=== PATIENT | female | born 1995 | race Two or more races ===

== ENCOUNTER 2018-07-24 16:53 | Inpatient (IN) | payer OTHER ==
[2018-07-24] MEDS ORDERED: Sodium Chloride 0.9% 10 ML Syringe FLUSH PRN (16:59)
[2018-07-24] MEDS ORDERED: Water For Irrigation,Sterile 1,000 ML Container IRR PRN (16:59)
[2018-07-24] MEDS ORDERED: Misoprostol 25 MCG (1/4 of 100 MCG) Tab VAG PRN (16:59)
[2018-07-24] MEDS ORDERED: Lidocaine 1% 50 ML MDV INJECT PRN (16:59)
[2018-07-24] MEDS ORDERED: Tranexamic Acid 1,000 MG in Sodium Chloride 0.9% 100 ML IV PRN (16:59)
[2018-07-24] MEDS ORDERED: Methylergonovine 0.2 MG/1 ML Amp IM PRN (16:59)
[2018-07-24] MEDS ORDERED: Nalbuphine 10 MG/1 ML Vial IVPUSH PRN (16:59)
[2018-07-24] MEDS ORDERED: Sodium Chloride 0.9% 2.5 ML Syringe FLUSH PRN (16:59)
[2018-07-24] MEDS ORDERED: Carboprost Tromethamine 250 MCG/1 ML Amp IM PRN (16:59)
[2018-07-24] MEDS ORDERED: Terbutaline 1 MG/ML SDV SUBCUT PRN (16:59)
[2018-07-24] MEDS ORDERED: Misoprostol 200 MCG Tab PO PRN (16:59)
[2018-07-24] MEDS ORDERED: Sodium Chloride 0.9% 10 ML SDV IV PRN (16:59)
[2018-07-24] MEDS ORDERED: Oxytocin/0.9 % Sodium Chloride 30 UNIT/500 ML BAG IV SCH ×2 (17:00→17:30)
[2018-07-24] MEDS: Misoprostol 25 MCG (1/4 of 100 MCG) Tab VAG PRN (22:40)
[2018-07-25] MEDS: Lactated Ringers 1,000 ML IV SCH ×4 (01:48→20:50)
[2018-07-25] MEDS: Misoprostol 25 MCG (1/4 of 100 MCG) Tab VAG PRN ×2 (02:46→07:00)
[2018-07-25] MEDS: Butorphanol 1 MG/ML SDV IVPUSH PRN ×2 (02:56→09:37)
[2018-07-25] MEDS ORDERED: fentaNYL 100 MCG/2 ML SDV ONE ×2 (14:40→21:15)
--- NOTE | 2018-07-25 15:25 | PCM.PREANE ---
Preanesthetic Assessment - Procedure Proposed Procedure: labor epidural - Anesthesia/Transfusion/Family Hx Anesthesia History: No Prior Anesthesia Family History of Anesthesia Reaction: No Transfusion History: No Prior Transfusion(s) - Review of Systems General: No Symptoms Pulmonary: No Symptoms Cardiovascular: No Symptoms Gastrointestinal: No Symptoms Neurological: No Symptoms Other: Reports: None - Physical Assessment Height: 5 ft 3 in Weight: 96.162 kg ASA Class: 2 ROM/Head Extension: Full Lungs: Clear to Auscultation, Normal Respiratory Effort Cardiovascular: Regular Rate, Regular Rhythm - Lab Values: Laboratory Last Values WBC 10.91 K/uL (4.0-11.0) 07/24/18 17:22 RBC 4.49 M/uL (4.30-5.90) 07/24/18 17:22 Hgb 13.3 g/dL (12.0-16.0) 07/24/18 17:22 Hct 39.9 % (36.0-46.0) 07/24/18 17:22 MCV 88.9 fL (80.0-98.0) 07/24/18 17:22 MCH 29.6 pg (27.0-32.0) 07/24/18 17:22 MCHC 33.3 g/dL (31.0-37.0) 07/24/18 17:22 RDW Std Deviation 46.6 fl (28.0-62.0) 07/24/18 17:22 RDW Coeff of Radha 14 % (11.0-15.0) 07/24/18 17:22 Plt Count 254 K/uL (150-400) 07/24/18 17:22 MPV 10.30 fL (7.40-12.00) 07/24/18 17:22 Nucleated RBC % 0.0 /100WBC 07/24/18 17:22 Nucleated RBCs # 0 K/uL 07/24/18 17:22 Blood Type A POSITIVE 07/24/18 17:22 Antibody Screen NEGATIVE 07/24/18 17:22 - Allergies Allergies/Adverse Reactions: Allergies Allergy/AdvReac Type Severity Reaction Status Date / Time No Known Allergies Allergy Verified 07/24/18 16:58 - Blood Blood Available: No Product(s) Available: None - Anesthesia Plan Pre-Op Medication Ordered: None - Acknowledgements Anesthesia Type Planned: Epidural Pt an Appropriate Candidate for the Planned Anesthesia: Yes Alternatives and Risks of Anesthesia Discussed w Pt/Guardian: Yes Pt/Guardian Understands and Agrees with Anesthesia Plan: Yes PreAnesthesia Questionnaire - Past Health History Medical/Surgical History: Denies 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: - SUBSTANCE USE Smoking Status *Q: Never Smoker Tobacco Use Within Last Twelve Months: No Second Hand Smoke Exposure: No Recreational Drug Use History: No - CURRENT (IN HOUSE) MEDS Current Meds: Current Medications Butorphanol Tartrate (Stadol) 1 mg IVPUSH Q1H PRN PRN Reason: Pain Last Admin: 07/25/18 09:37 Dose: 1 mg Carboprost Tromethamine (Hemabate Ds) 250 mcg IM ASDIRECTED PRN PRN Reason: Post Hemorrhage Lactated Ringer's (Ringers, Lactated) 1,000 mls @ 150 mls/hr IV ASDIRECTED WHITLEY Last Admin: 07/25/18 15:04 Dose: 150 mls/hr Oxytocin/Sodium Chloride (Oxytocin 30 Unit/500 Ml-Ns) 30 unit in 500 mls @ 999 mls/hr IV TITRATE WHITLEY Oxytocin/Sodium Chloride (Oxytocin 30 Unit/500 Ml-Ns) 30 unit in 500 mls @ 2 mls/hr IV TITRATE WHITLEY; Protocol Last Admin: 07/25/18 13:30 Dose: 2 munits/min, 2 mls/hr Tranexamic Acid 1,000 mg/ (Sodium Chloride) 110 mls @ 660 mls/hr IV ONETIME PRN PRN Reason: Bleeding Lidocaine HCl (Xylocaine 1%) 50 ml INJECT ONETIME PRN PRN Reason: Laceration repair Methylergonovine Maleate (Methergine) 0.2 mg IM ASDIRECTED PRN PRN Reason: Post Hemorrhage Misoprostol (Cytotec) 200 mcg PO ONETIME PRN PRN Reason: Post Hemorrhage Misoprostol (Cytotec) 25 mcg VAG ONETIME PRN PRN Reason: Cervical Ripening Last Admin: 07/24/18 17:56 Dose: 25 mcg Misoprostol (Cytotec) 25 mcg VAG Q4H PRN PRN Reason: Cervical Ripening Last Admin: 07/25/18 07:00 Dose: 25 mcg Nalbuphine HCl (Nubain) 10 mg IVPUSH Q1H PRN PRN Reason: Pain (severe 7-10) Sodium Chloride (Saline Flush) 10 ml FLUSH ASDIRECTED PRN PRN Reason: Keep Vein Open Sodium Chloride (Saline Flush) 2.5 ml FLUSH ASDIRECTED PRN PRN Reason: Keep Vein Open Sodium Chloride (Normal Saline) 10 ml IV ASDIRECTED PRN PRN Reason: IV Use Sterile Water (Sterile Water For Irrigation) 1,000 ml IRR ASDIRECTED PRN PRN Reason: delivery Terbutaline Sulfate (Brethine) 0.25 mg SUBCUT ASDIRECTED PRN PRN Reason: Tacysystole Discontinued Medications Fentanyl (Sublimaze) Confirm Administered Dose 100 mcg .ROUTE .STK-MED ONE Stop: 07/25/18 14:41 Fentanyl/Bupivacaine HCl (Anxmuozl-Gpvox-Sn 2 Mcg/Ml-0.125%) Confirm Administered Dose 100 mls @ as directed .ROUTE .STK-MED ONE Stop: 07/25/18 14:41
[2018-07-25] MEDS ORDERED: Acetaminophen 500 MG Tab PO ONE (19:06)
[2018-07-25] MEDS ORDERED: Bupivacaine 0.5% 10 ML SDV ONE (20:37)
--- NOTE | 2018-07-26 00:54 | PCM.DEL ---
L & D Note - General Info Date of Service: 07/26/18 Mother's Due Date: 07/30/18 - Delivery Note Labor: Induced by ARM, Induced by Oxytocin Cervical Ripening Method: Balloon Device, Misoprostil Delivery Outcome: Livebirth Delivery Method: Spontaneous Vaginal Delivery-Single Delivery Mode: Vacuum Extraction Presentation: Right Occiput Anterior (DERREK) Nuchal Cord: Present Prep: Povidone-Iodine (Betadine Anesthesia Type: Epidural Amniotic Fluid Description: Clear Episiotomy Type: None Laceration: 2nd Degree Suture type: Vicryl Suture size: 3-0 Placenta: Intact, Spontaneous Cord: 3 Vessels Estimated Blood Loss: 400 Resuscitation Needed: Yes [place]: Suctioned, Bulb Syringe, Stimulated, [place] Used, Warmer Used Provider: Clementine Monroy Score 1 min: 7 Score 5 min: 8 Delivery Comments (Free Text/Narrative):: Nicole is a who was induced at 39.1 wga for persistent glucosuria. She delivered on 07/26/18 at 39.3 wga at 00:03 to a liveborn male . Infant was assisted with a low vacuum. He was resuscitated after delivery. Mom remained stable throughout. Vacuum Extractor Progress Note - Alternative Labor Strategies Considered Alternative Labor Strategies Considered:: Reports: Yes Strategies Considered:: Reports: Contraction Intensity Adequate, Position Changes Used to Facilitate Rotation & Descent, Empty Bladder Indications Considered:: Reports: Yes Indications:: Reports: Suspicion of Immediate or Potential Compromise - Patient Prepared Patient Prepared:: Reports: Yes Informed Consent:: Reports: Verbal Risks: Reports: Yes Risks Include:: Reports: Laceration, Shoulder Dystocia, Maternal Injury, Other ( injury) Anesthesia/Analgesia Adequate:: Reports: Yes - Probability of Success High Probability of Success:: Reports: Yes Weight Estimated:: Reports: AGA Patient Diabetic:: Reports: No Pelvis Adequate:: Reports: Yes Position:: OA Asynclitic:: Reports: Yes Station:: +2 - Application Time Maximum Application Time & Number of Pop-Offs Predetermined:: Reports: Yes Maximum Pressure Maintained in Green Zone (cm Hg):: 50 Number of Times Cup Disengaged:: 1 Type of Vacuum Used:: Reports: Cup: Soft Vacuum Extraction: Successful Comments:: one "pop-off"; pressure released on vacuum between contractions - Exit Strategy Exit strategy available:: Reports: Yes and resuscitation teams readily available:: Reports: Yes - General Info Date of Service: 07/26/18 - Patient Data Vitals - Most Recent: Last Vital Signs Temp 100.8 F H 07/25/18 19:24 Pulse Resp BP Pulse Ox Weight - Most Recent: 212 lb Med Orders - Current: Current Medications Butorphanol Tartrate (Stadol) 1 mg IVPUSH Q1H PRN PRN Reason: Pain Last Admin: 07/25/18 09:37 Dose: 1 mg Carboprost Tromethamine (Hemabate Ds) 250 mcg IM ASDIRECTED PRN PRN Reason: Post Hemorrhage Lactated Ringer's (Ringers, Lactated) 1,000 mls @ 150 mls/hr IV ASDIRECTED WHITLEY Last Admin: 07/25/18 20:50 Dose: 150 mls/hr Oxytocin/Sodium Chloride (Oxytocin 30 Unit/500 Ml-Ns) 30 unit in 500 mls @ 999 mls/hr IV TITRATE WHITLEY Oxytocin/Sodium Chloride (Oxytocin 30 Unit/500 Ml-Ns) 30 unit in 500 mls @ 2 mls/hr IV TITRATE WHITLEY; Protocol Last Titration: 07/25/18 16:06 Dose: 6 munits/min, 6 mls/hr Tranexamic Acid 1,000 mg/ (Sodium Chloride) 110 mls @ 660 mls/hr IV ONETIME PRN PRN Reason: Bleeding Lidocaine HCl (Xylocaine 1%) 50 ml INJECT ONETIME PRN PRN Reason: Laceration repair Methylergonovine Maleate (Methergine) 0.2 mg IM ASDIRECTED PRN PRN Reason: Post Hemorrhage Misoprostol (Cytotec) 200 mcg PO ONETIME PRN PRN Reason: Post Hemorrhage Misoprostol (Cytotec) 25 mcg VAG ONETIME PRN PRN Reason: Cervical Ripening Last Admin: 07/24/18 17:56 Dose: 25 mcg Misoprostol (Cytotec) 25 mcg VAG Q4H PRN PRN Reason: Cervical Ripening Last Admin: 07/25/18 07:00 Dose: 25 mcg Nalbuphine HCl (Nubain) 10 mg IVPUSH Q1H PRN PRN Reason: Pain (severe 7-10) Sodium Chloride (Saline Flush) 10 ml FLUSH ASDIRECTED PRN PRN Reason: Keep Vein Open Sodium Chloride (Saline Flush) 2.5 ml FLUSH ASDIRECTED PRN PRN Reason: Keep Vein Open Sodium Chloride (Normal Saline) 10 ml IV ASDIRECTED PRN PRN Reason: IV Use Sterile Water (Sterile Water For Irrigation) 1,000 ml IRR ASDIRECTED PRN PRN Reason: delivery Terbutaline Sulfate (Brethine) 0.25 mg SUBCUT ASDIRECTED PRN PRN Reason: Tacysystole Discontinued Medications Acetaminophen (Tylenol Extra Strength) 1,000 mg PO ONETIME ONE Stop: 07/25/18 19:07 Last Admin: 07/25/18 19:24 Dose: 1,000 mg Bupivacaine HCl (Sensorcaine-Mpf 0.5%) Confirm Administered Dose 10 ml .ROUTE .STK-MED ONE Stop: 07/25/18 20:38 Fentanyl (Sublimaze) Confirm Administered Dose 100 mcg .ROUTE .STK-MED ONE Stop: 07/25/18 14:41 Fentanyl (Sublimaze) Confirm Administered Dose 100 mcg .ROUTE .STK-MED ONE Stop: 07/25/18 21:16 Fentanyl/Bupivacaine HCl (Fbsqbljf-Mkusg-Qz 2 Mcg/Ml-0.125%) Confirm Administered Dose 100 mls @ as directed .ROUTE .STK-MED ONE Stop: 07/25/18 14:41 Fentanyl/Bupivacaine HCl (Wuzuqacj-Gpfnb-Ft 2 Mcg/Ml-0.125%) Confirm Administered Dose 100 mls @ as directed .ROUTE .STK-MED ONE Stop: 07/25/18 21:21 - Problem List & Annotations (1) Status post vacuum-assisted vaginal delivery SNOMED Code(s): 172731125, [id number] Code(s): Z87.59 - PERSONAL HISTORY OF COMP OF PREG, CHLDBRTH AND THE PUERP Status: Acute Current Visit: Yes - Problem List Review Problem List Initiated/Reviewed/Updated: Yes - Assessment Assessment:: Nicole is now a for a with vacuum assistance of a liveborn male infant at 00:03. required resuscitation and was taken to nursery. Mom remained stable throughout and is recovering. - Plan Plan:: see dictation by Dr. Monroy
[2018-07-26] MEDS ORDERED: Ibuprofen 400 MG Tab PO PRN (01:07)
[2018-07-26] MEDS ORDERED: Ondansetron 4 MG/2 ML SDV IVPUSH PRN (01:07)
[2018-07-26] MEDS ORDERED: Witch Hazel Medicated Pads 40/Jar TOP PRN (01:07)
[2018-07-26] MEDS ORDERED: Carboprost Tromethamine 250 MCG/1 ML Amp IM PRN (01:07)
[2018-07-26] MEDS ORDERED: Docusate Sodium 100 MG Cap PO PRN (01:07)
[2018-07-26] MEDS ORDERED: Benzocaine/Menthol 20%-0.5% Spray 78 GM Cannister TOP PRN (01:07)
[2018-07-26] MEDS ORDERED: Methylergonovine 0.2 MG/1 ML Amp IM PRN (01:07)
[2018-07-26] MEDS ORDERED: oxyCODONE 5 MG Tab PO PRN (01:07)
[2018-07-26] MEDS ORDERED: Lanolin 100% Cream 7 GM Tube TOP PRN (01:07)
[2018-07-26] MEDS ORDERED: Bisacodyl 10 MG Supp RECTAL PRN (01:07)
[2018-07-26] MEDS ORDERED: Acetaminophen 500 MG Tab PO PRN ×2 (01:07)
[2018-07-26] MEDS: Ibuprofen 800 MG Tab PO PRN ×2 (01:24→13:45)
--- NOTE | 2018-07-26 03:39 | OR ---
SURGEON: Clementine Monroy M.D. DATE OF PROCEDURE: 07/26/2018 PREOPERATIVE DIAGNOSES: 1. 39 weeks' intrauterine . 2. Elective induction of labor. 3. tachycardia, abnormal heart tones. POSTOPERATIVE DIAGNOSES: 1. 39 weeks' intrauterine . 2. Elective induction of labor. 3. tachycardia, abnormal heart tones. PROCEDURE: Vacuum-assisted vaginal delivery with second-degree midline laceration repair. CUPOLA TENDER: James Miller MS4. ANESTHESIA: Epidural. ESTIMATED BLOOD LOSS: 400 mL. COMPLICATIONS: None. FINDINGS: Viable male, scores 7 at 1 minute and 8 at 5 minutes, weight 6 pounds 14 ounces. Spontaneous delivery, intact placenta, 3-vessel cord, clear amniotic fluid. DISPOSITION: The patient in LDRP, infant in [facility]. PROCEDURE DETAILS: Nicole Valdivia is a 22-year-old, G1, P0, at 39 weeks' gestational age, who presented for elective induction of labor. Initially, she was initiated on cervical ripening with Cytotec, and after receiving 4 doses of this, she was still 1 cm, 60% effaced, -3 station. Therefore, underwent balloon ripening as well. She responded nicely to this and within approximately 5-1/2 hours, the balloon extruded. She was found to be 4 to 5 cm, 80% effaced, and -2 station. Therefore, Pitocin was initiated. heart tones at that time remained in the 140s with variability. The patient continued to progress through the early afternoon hours, became more comfortable with epidural. Shortly after 5:00 p.m., she was found to be approximately 6 to 7 cm dilated, 80% effaced, -1 station. Amniotomy was performed, clear fluid was returned. heart tones remained in the 140s to 150s with variability. The patient continued to progress. Pitocin was at 6 milliunits per minute. Shortly before 10:00 p.m., she was found to be complete, 100% effaced, +1 station; began pushing efforts, was able to push to a +2 station, but after that made minimal further descent. After an hour of pushing, I evaluated the patient. She was found to be more transverse presentation, therefore rotated to OA position. Continued with pushing efforts and was able to push to a +3 station for the next hour. heart tone did transition at this time to the 170. She did have a low-grade fever of 100.6, received Tylenol 1 g and IV fluid bolus. The heart tones remained in the 170s and then transitioned to the 180s. At this point, we were 2 hours into pushing. Therefore, I discussed with the patient proceeding with an operative vaginal delivery versus delivery given the persistent tachycardia. She would like to proceed with an operative vaginal delivery and prefers vacuum assisted. Risks of this have been discussed with she and her including increased risk for maternal vaginal trauma, scalp bruising and cephalhematoma and even potentially intracranial bleeding. They voiced their understanding. They would like to proceed in this direction. The [place] for the patient was approximately 3000 g. Midline sagittal suture palpated. Fetus was felt to be OA position. The patient was then placed in modified dorsal lithotomy position, prepped and draped in the usual aseptic manner. I was able to gently place the vacuum along the scalp. The delivery team had been notified. With next contraction, I was able to insufflate the vacuum to the green zone and assisted with pushing efforts. This was released between contractions. With the next contraction, I was able to insufflate to the green zone. However, the pressure did not maintain with this vacuum device. Despite efforts to continue to maintain in the green zone, it would just slowly lose pressure. Therefore, actually removed this vacuum after releasing it and replaced it with another. At this juncture, there was no further difficulty with maintaining the appropriate pressure. With the next approximately 3 to 4 contractions, the patient was able to push. There was a single pop-off that occurred. The patient was able to push to a +5 for delivery. The vacuum was removed. The infant was delivered in DERREK position. The head was delivered followed by anterior shoulder, posterior shoulder, and remainder of the body without difficulty. Loose nuchal cord x1 was reduced manually. 's oropharynx and nares were bulb suctioned. Infant was stimulated and was handed off to his mother, attending nursing staff at her side. Dr. Posada was also present as home security professional. The cord was clamped x2 and cut after the completed pulsating. The cord arterial, cord venous, cord blood sampling was obtained. Light pressure was applied while the placenta was delivered spontaneously intact. Vigorous fundal uterine massage was then applied while 30 units of Pitocin was delivered in 500 mL of IV fluid. Upon inspection of cervix, vaginal sidewalls, and perineum, there was found to be a second-degree midline laceration and repaired using 3-0 Vicryl in the usual fashion. Uterus remained firm. Hemostasis remained evident. Instrument and sponge counts were correct. The patient remained in LDRP, infant in [facility]. MAYCO / DAYANA /[id number]
--- NOTE | 2018-07-26 13:59 | PCM48HPAN ---
Post Anesthesia Note - EVALUATION WITHIN 48HRS OF ANESTHETIC Vital Signs in Normal Range: Yes Patient Participated in Evaluation: Yes Respiratory Function Stable: Yes Airway Patent: Yes Cardiovascular Function Stable: Yes Hydration Status Stable: Yes Pain Control Satisfactory: Yes Nausea and Vomiting Control Satisfactory: Yes Mental Status Recovered: Yes - COMMENTS/OBSERVATIONS Free Text/Narrative:: no complaints
[2018-07-27] MEDS: Ibuprofen 800 MG Tab PO PRN ×3 (00:09→17:42)
--- NOTE | 2018-07-27 08:00 | PCM.PNPP ---
<Clementine Miller - Last Filed: 07/27/18 07:55> - General Info Date of Service: 07/27/18 Admission Dx/Problem (Free Text): Nicole is a who is PP day 1 for with low vacuum-assisted second stage of labor. She states her pain is improving and she denies new symptoms. She is urinating, passing gas, ambulating, and eating without issue. She states she feels well enough to be discharged to home today. Functional Status: Reports: Pain Controlled, Tolerating Diet, Ambulating, Urinating - Review of Systems General: Reports: No Symptoms Pulmonary: Reports: No Symptoms Cardiovascular: Reports: No Symptoms Gastrointestinal: Reports: No Symptoms Genitourinary: Reports: No Symptoms Musculoskeletal: Reports: No Symptoms Skin: Reports: No Symptoms Neurological: Reports: No Symptoms Psychiatric: Reports: No Symptoms - General Info Date of Service: 07/27/18 - Patient Data Vital Signs - Most Recent: Last Vital Signs Temp 97.6 F 07/27/18 04:00 Pulse 88 07/27/18 04:00 Resp 18 07/27/18 04:00 BP 106/62 07/27/18 04:00 Pulse Ox 96 07/27/18 04:00 Weight - Most Recent: 96.162 kg Lab Results - Last 24 Hours: Laboratory Results - last 24 hr 07/26/18 Range/Units 09:11 Hgb 12.5 (12.0-16.0) g/dL Hct 37.4 (36.0-46.0) % Med Orders - Current: Current Medications Acetaminophen (Tylenol Extra Strength) 500 mg PO Q4H PRN PRN Reason: Pain Last Admin: 07/26/18 01:22 Dose: 500 mg Acetaminophen (Tylenol Extra Strength) 1,000 mg PO Q4H PRN PRN Reason: Pain Last Admin: 07/26/18 13:46 Dose: 1,000 mg Benzocaine/Menthol (Dermoplast Pain Relief 20%-0.5% [place]) 78 gm TOP ASDIRECTED PRN PRN Reason: Perineal Comfort Measure Last Admin: 07/26/18 01:25 Dose: 1 canister Bisacodyl (Dulcolax) 10 mg RECTAL ONETIME PRN PRN Reason: Constipation Carboprost Tromethamine (Hemabate Ds) 250 mcg IM ASDIRECTED PRN PRN Reason: Excessive vaginal bleeding Docusate Sodium (Colace) 100 mg PO BID PRN PRN Reason: Constipation Emollient Ointment (Lansinoh Hpa) 0 gm TOP ASDIRECTED PRN PRN Reason: Sore Nipples Last Admin: 07/26/18 01:25 Dose: 1 tube Ibuprofen (Motrin) 400 mg PO Q4H PRN PRN Reason: Pain Ibuprofen (Motrin) 800 mg PO Q6H PRN PRN Reason: Pain Last Admin: 07/27/18 00:09 Dose: 800 mg Methylergonovine Maleate (Methergine) 0.2 mg IM ONETIME PRN PRN Reason: Excessive Vaginal Bleeding Ondansetron HCl (Zofran) 4 mg IVPUSH Q6H PRN PRN Reason: Nausea/Vomiting Oxycodone HCl (Oxycodone) 5 mg PO Q2H PRN PRN Reason: Pain Witch Desiree (Tucks) 1 pad TOP ASDIRECTED PRN PRN Reason: comfort care Discontinued Medications Acetaminophen (Tylenol Extra Strength) 1,000 mg PO ONETIME ONE Stop: 07/25/18 19:07 Last Admin: 07/25/18 19:24 Dose: 1,000 mg Bupivacaine HCl (Sensorcaine-Mpf 0.5%) Confirm Administered Dose 10 ml .ROUTE .STK-MED ONE Stop: 07/25/18 20:38 Butorphanol Tartrate (Stadol) 1 mg IVPUSH Q1H PRN PRN Reason: Pain Last Admin: 07/25/18 09:37 Dose: 1 mg Carboprost Tromethamine (Hemabate Ds) 250 mcg IM ASDIRECTED PRN PRN Reason: Post Hemorrhage Fentanyl (Sublimaze) Confirm Administered Dose 100 mcg .ROUTE .STK-MED ONE Stop: 07/25/18 14:41 Fentanyl (Sublimaze) Confirm Administered Dose 100 mcg .ROUTE .STK-MED ONE Stop: 07/25/18 21:16 Lactated Ringer's (Ringers, Lactated) 1,000 mls @ 150 mls/hr IV ASDIRECTED WHITLEY Last Admin: 07/25/18 20:50 Dose: 150 mls/hr Oxytocin/Sodium Chloride (Oxytocin 30 Unit/500 Ml-Ns) 30 unit in 500 mls @ 999 mls/hr IV TITRATE WHITLEY Oxytocin/Sodium Chloride (Oxytocin 30 Unit/500 Ml-Ns) 30 unit in 500 mls @ 2 mls/hr IV TITRATE WHITLEY; Protocol Last Titration: 07/25/18 16:06 Dose: 6 munits/min, 6 mls/hr Tranexamic Acid 1,000 mg/ (Sodium Chloride) 110 mls @ 660 mls/hr IV ONETIME PRN PRN Reason: Bleeding Fentanyl/Bupivacaine HCl (Vebvacuf-Rstjz-Wr 2 Mcg/Ml-0.125%) Confirm Administered Dose 100 mls @ as directed .ROUTE .STK-MED ONE Stop: 07/25/18 14:41 Fentanyl/Bupivacaine HCl (Elophzfp-Njkcd-Gr 2 Mcg/Ml-0.125%) Confirm Administered Dose 100 mls @ as directed .ROUTE .STK-MED ONE Stop: 07/25/18 21:21 Lidocaine HCl (Xylocaine 1%) 50 ml INJECT ONETIME PRN PRN Reason: Laceration repair Methylergonovine Maleate (Methergine) 0.2 mg IM ASDIRECTED PRN PRN Reason: Post Hemorrhage Misoprostol (Cytotec) 200 mcg PO ONETIME PRN PRN Reason: Post Hemorrhage Misoprostol (Cytotec) 25 mcg VAG ONETIME PRN PRN Reason: Cervical Ripening Last Admin: 07/24/18 17:56 Dose: 25 mcg Misoprostol (Cytotec) 25 mcg VAG Q4H PRN PRN Reason: Cervical Ripening Last Admin: 07/25/18 07:00 Dose: 25 mcg Nalbuphine HCl (Nubain) 10 mg IVPUSH Q1H PRN PRN Reason: Pain (severe 7-10) Sodium Chloride (Saline Flush) 10 ml FLUSH ASDIRECTED PRN PRN Reason: Keep Vein Open Sodium Chloride (Saline Flush) 2.5 ml FLUSH ASDIRECTED PRN PRN Reason: Keep Vein Open Sodium Chloride (Normal Saline) 10 ml IV ASDIRECTED PRN PRN Reason: IV Use Sterile Water (Sterile Water For Irrigation) 1,000 ml IRR ASDIRECTED PRN PRN Reason: delivery Terbutaline Sulfate (Brethine) 0.25 mg SUBCUT ASDIRECTED PRN PRN Reason: Tacysystole - Infant Interaction Disposition, : to Nursery Interaction: Other (see below) ( at nursery for labs) Feeding: Breastfed ; Nursed Well Support Person: - Recovery Exam Fundal Tone: Firm Fundal Level: 1 Fingerbreadths Below Umbilicus Fundal Placement: Midline Lochia Amount: Scant Lochia Color: Rubra/Red Perineum Description: Other (see below) Other Perinuem Description: 2nd deg laceration Episiotomy/Laceration: Approximated Bladder Status: Nonpalpable, Voiding Urinary Elimination: Voided - Exam General: Alert, Oriented HEENT: Pupils Equal, Pupils Reactive, EOMI, Mucous Membr. Moist/[place] Neck: Supple Lungs: Clear to Auscultation, Normal Respiratory Effort Cardiovascular: Regular Rate, Regular Rhythm GI/Abdominal Exam: Normal Bowel Sounds, Soft, Non-Tender, No Organomegaly, No Distention Extremities: Normal Inspection, Normal Range of Motion, Non-Tender, Pedal Edema (trace edema bilaterally in feet/ankles) Skin: Warm, Dry, Intact Wound/Incisions: Healing Well Neurological: No New Focal Deficit Psy/Mental Status: Alert, Normal Affect, Normal Mood - Problem List & Annotations (1) Status post vacuum-assisted vaginal delivery SNOMED Code(s): 900966849, [id number] Code(s): Z87.59 - PERSONAL HISTORY OF COMP OF PREG, CHLDBRTH AND THE PUERP Status: Acute Current Visit: Yes - Problem List Review Problem List Initiated/Reviewed/Updated: Yes - Assessment Assessment:: Nicole is a who is PP day 1 for with low vacuum-assisted second stage. She was induced at 39 wga for persistent glucosuria. She is improving in functional status. Vital signs are stable and good, labs are reassuring. Pain is being well-managed. - Plan Plan:: continue routine PP cares discharge to home today pending evaluation by Dr. Odom this morning continue pain management prn <Amalia Concepcion - Last Filed: 07/27/18 08:11> - General Info Admission Dx/Problem (Free Text): Patient seen at bedside , denies any complains , she is ambulating , voiding and tolerating regular diet - Patient Data Vital Signs - Most Recent: Last Vital Signs Temp 36.4 C 07/27/18 04:00 Pulse 88 07/27/18 04:00 Resp 18 07/27/18 04:00 BP 106/62 07/27/18 04:00 Pulse Ox 96 07/27/18 04:00 Lab Results - Last 24 Hours: Laboratory Results - last 24 hr 07/26/18 Range/Units 09:11 Hgb 12.5 (12.0-16.0) g/dL Hct 37.4 (36.0-46.0) % Med Orders - Current: Current Medications Acetaminophen (Tylenol Extra Strength) 500 mg PO Q4H PRN PRN Reason: Pain Last Admin: 07/26/18 01:22 Dose: 500 mg Acetaminophen (Tylenol Extra Strength) 1,000 mg PO Q4H PRN PRN Reason: Pain Last Admin: 07/26/18 13:46 Dose: 1,000 mg Benzocaine/Menthol (Dermoplast Pain Relief 20%-0.5% [place]) 78 gm TOP ASDIRECTED PRN PRN Reason: Perineal Comfort Measure Last Admin: 07/26/18 01:25 Dose: 1 canister Bisacodyl (Dulcolax) 10 mg RECTAL ONETIME PRN PRN Reason: Constipation Carboprost Tromethamine (Hemabate Ds) 250 mcg IM ASDIRECTED PRN PRN Reason: Excessive vaginal bleeding Docusate Sodium (Colace) 100 mg PO BID PRN PRN Reason: Constipation Emollient Ointment (Lansinoh Hpa) 0 gm TOP ASDIRECTED PRN PRN Reason: Sore Nipples Last Admin: 07/26/18 01:25 Dose: 1 tube Ibuprofen (Motrin) 400 mg PO Q4H PRN PRN Reason: Pain Ibuprofen (Motrin) 800 mg PO Q6H PRN PRN Reason: Pain Last Admin: 07/27/18 08:08 Dose: 800 mg Methylergonovine Maleate (Methergine) 0.2 mg IM ONETIME PRN PRN Reason: Excessive Vaginal Bleeding Ondansetron HCl (Zofran) 4 mg IVPUSH Q6H PRN PRN Reason: Nausea/Vomiting Oxycodone HCl (Oxycodone) 5 mg PO Q2H PRN PRN Reason: Pain Witch Desiree (Tucks) 1 pad TOP ASDIRECTED PRN PRN Reason: comfort care Discontinued Medications Acetaminophen (Tylenol Extra Strength) 1,000 mg PO ONETIME ONE Stop: 07/25/18 19:07 Last Admin: 07/25/18 19:24 Dose: 1,000 mg Bupivacaine HCl (Sensorcaine-Mpf 0.5%) Confirm Administered Dose 10 ml .ROUTE .ST-MED ONE Stop: 07/25/18 20:38 Butorphanol Tartrate (Stadol) 1 mg IVPUSH Q1H PRN PRN Reason: Pain Last Admin: 07/25/18 09:37 Dose: 1 mg Carboprost Tromethamine (Hemabate Ds) 250 mcg IM ASDIRECTED PRN PRN Reason: Post Hemorrhage Fentanyl (Sublimaze) Confirm Administered Dose 100 mcg .ROUTE .STK-MED ONE Stop: 07/25/18 14:41 Fentanyl (Sublimaze) Confirm Administered Dose 100 mcg .ROUTE .ST-MED ONE Stop: 07/25/18 21:16 Lactated Ringer's (Ringers, Lactated) 1,000 mls @ 150 mls/hr IV ASDIRECTED WHITLEY Last Admin: 07/25/18 20:50 Dose: 150 mls/hr Oxytocin/Sodium Chloride (Oxytocin 30 Unit/500 Ml-Ns) 30 unit in 500 mls @ 999 mls/hr IV TITRATE WHITLEY Oxytocin/Sodium Chloride (Oxytocin 30 Unit/500 Ml-Ns) 30 unit in 500 mls @ 2 mls/hr IV TITRATE WHITLEY; Protocol Last Titration: 07/25/18 16:06 Dose: 6 munits/min, 6 mls/hr Tranexamic Acid 1,000 mg/ (Sodium Chloride) 110 mls @ 660 mls/hr IV ONETIME PRN PRN Reason: Bleeding Fentanyl/Bupivacaine HCl (Xbhjvida-Dumkr-Nt 2 Mcg/Ml-0.125%) Confirm Administered Dose 100 mls @ as directed .ROUTE .STK-MED ONE Stop: 07/25/18 14:41 Fentanyl/Bupivacaine HCl (Eixzufxl-Jpnht-Ca 2 Mcg/Ml-0.125%) Confirm Administered Dose 100 mls @ as directed .ROUTE .STK-MED ONE Stop: 07/25/18 21:21 Lidocaine HCl (Xylocaine 1%) 50 ml INJECT ONETIME PRN PRN Reason: Laceration repair Methylergonovine Maleate (Methergine) 0.2 mg IM ASDIRECTED PRN PRN Reason: Post Hemorrhage Misoprostol (Cytotec) 200 mcg PO ONETIME PRN PRN Reason: Post Hemorrhage Misoprostol (Cytotec) 25 mcg VAG ONETIME PRN PRN Reason: Cervical Ripening Last Admin: 07/24/18 17:56 Dose: 25 mcg Misoprostol (Cytotec) 25 mcg VAG Q4H PRN PRN Reason: Cervical Ripening Last Admin: 07/25/18 07:00 Dose: 25 mcg Nalbuphine HCl (Nubain) 10 mg IVPUSH Q1H PRN PRN Reason: Pain (severe 7-10) Sodium Chloride (Saline Flush) 10 ml FLUSH ASDIRECTED PRN PRN Reason: Keep Vein Open Sodium Chloride (Saline Flush) 2.5 ml FLUSH ASDIRECTED PRN PRN Reason: Keep Vein Open Sodium Chloride (Normal Saline) 10 ml IV ASDIRECTED PRN PRN Reason: IV Use Sterile Water (Sterile Water For Irrigation) 1,000 ml IRR ASDIRECTED PRN PRN Reason: delivery Terbutaline Sulfate (Brethine) 0.25 mg SUBCUT ASDIRECTED PRN PRN Reason: Tacysystole - Assessment Assessment:: PPD1 stable - Plan Plan:: Discharge home today
--- NOTE | 2018-07-28 10:45 | PCM.PNPP ---
- General Info Date of Service: 07/28/18 Admission Dx/Problem (Free Text): Patient seen at bedside , denies any complains , she is ambulating , voiding and tolerating regular diet Subjective Update: 22 yo PPD2 s/p , with elevated bilirubin , being managed by peds Functional Status: Reports: Pain Controlled, Tolerating Diet, Ambulating, Urinating - Review of Systems General: Reports: No Symptoms HEENT: Reports: No Symptoms Pulmonary: Reports: No Symptoms Cardiovascular: Reports: No Symptoms Gastrointestinal: Reports: No Symptoms Genitourinary: Reports: No Symptoms Musculoskeletal: Reports: No Symptoms Skin: Reports: No Symptoms Neurological: Reports: No Symptoms Psychiatric: Reports: No Symptoms - General Info Date of Service: 07/28/18 - Patient Data Vital Signs - Most Recent: Last Vital Signs Temp 36.2 C 07/28/18 07:25 Pulse 98 07/28/18 07:25 Resp 17 07/28/18 07:25 BP 124/58 L 07/28/18 07:25 Pulse Ox 96 07/28/18 07:25 Weight - Most Recent: 96.162 kg Med Orders - Current: Current Medications Acetaminophen (Tylenol Extra Strength) 500 mg PO Q4H PRN PRN Reason: Pain Last Admin: 07/26/18 01:22 Dose: 500 mg Acetaminophen (Tylenol Extra Strength) 1,000 mg PO Q4H PRN PRN Reason: Pain Last Admin: 07/26/18 13:46 Dose: 1,000 mg Benzocaine/Menthol (Dermoplast Pain Relief 20%-0.5% [place]) 78 gm TOP ASDIRECTED PRN PRN Reason: Perineal Comfort Measure Last Admin: 07/26/18 01:25 Dose: 1 canister Bisacodyl (Dulcolax) 10 mg RECTAL ONETIME PRN PRN Reason: Constipation Carboprost Tromethamine (Hemabate Ds) 250 mcg IM ASDIRECTED PRN PRN Reason: Excessive vaginal bleeding Docusate Sodium (Colace) 100 mg PO BID PRN PRN Reason: Constipation Emollient Ointment (Lansinoh Hpa) 0 gm TOP ASDIRECTED PRN PRN Reason: Sore Nipples Last Admin: 07/26/18 01:25 Dose: 1 tube Ibuprofen (Motrin) 400 mg PO Q4H PRN PRN Reason: Pain Ibuprofen (Motrin) 800 mg PO Q6H PRN PRN Reason: Pain Last Admin: 07/27/18 17:42 Dose: 800 mg Methylergonovine Maleate (Methergine) 0.2 mg IM ONETIME PRN PRN Reason: Excessive Vaginal Bleeding Ondansetron HCl (Zofran) 4 mg IVPUSH Q6H PRN PRN Reason: Nausea/Vomiting Oxycodone HCl (Oxycodone) 5 mg PO Q2H PRN PRN Reason: Pain Witch Desiree (Tucks) 1 pad TOP ASDIRECTED PRN PRN Reason: comfort care Discontinued Medications Acetaminophen (Tylenol Extra Strength) 1,000 mg PO ONETIME ONE Stop: 07/25/18 19:07 Last Admin: 07/25/18 19:24 Dose: 1,000 mg Bupivacaine HCl (Sensorcaine-Mpf 0.5%) Confirm Administered Dose 10 ml .ROUTE .STK-MED ONE Stop: 07/25/18 20:38 Butorphanol Tartrate (Stadol) 1 mg IVPUSH Q1H PRN PRN Reason: Pain Last Admin: 07/25/18 09:37 Dose: 1 mg Carboprost Tromethamine (Hemabate Ds) 250 mcg IM ASDIRECTED PRN PRN Reason: Post Hemorrhage Fentanyl (Sublimaze) Confirm Administered Dose 100 mcg .ROUTE .STK-MED ONE Stop: 07/25/18 14:41 Fentanyl (Sublimaze) Confirm Administered Dose 100 mcg .ROUTE .STK-MED ONE Stop: 07/25/18 21:16 Lactated Ringer's (Ringers, Lactated) 1,000 mls @ 150 mls/hr IV ASDIRECTED WHITLEY Last Admin: 07/25/18 20:50 Dose: 150 mls/hr Oxytocin/Sodium Chloride (Oxytocin 30 Unit/500 Ml-Ns) 30 unit in 500 mls @ 999 mls/hr IV TITRATE WHITLEY Oxytocin/Sodium Chloride (Oxytocin 30 Unit/500 Ml-Ns) 30 unit in 500 mls @ 2 mls/hr IV TITRATE WHITLEY; Protocol Last Titration: 07/25/18 16:06 Dose: 6 munits/min, 6 mls/hr Tranexamic Acid 1,000 mg/ (Sodium Chloride) 110 mls @ 660 mls/hr IV ONETIME PRN PRN Reason: Bleeding Fentanyl/Bupivacaine HCl (Waxfstjj-Zsfys-Ip 2 Mcg/Ml-0.125%) Confirm Administered Dose 100 mls @ as directed .ROUTE .STK-MED ONE Stop: 07/25/18 14:41 Fentanyl/Bupivacaine HCl (Gvryzvab-Dttfx-Wv 2 Mcg/Ml-0.125%) Confirm Administered Dose 100 mls @ as directed .ROUTE .STK-MED ONE Stop: 07/25/18 21:21 Lidocaine HCl (Xylocaine 1%) 50 ml INJECT ONETIME PRN PRN Reason: Laceration repair Methylergonovine Maleate (Methergine) 0.2 mg IM ASDIRECTED PRN PRN Reason: Post Hemorrhage Misoprostol (Cytotec) 200 mcg PO ONETIME PRN PRN Reason: Post Hemorrhage Misoprostol (Cytotec) 25 mcg VAG ONETIME PRN PRN Reason: Cervical Ripening Last Admin: 07/24/18 17:56 Dose: 25 mcg Misoprostol (Cytotec) 25 mcg VAG Q4H PRN PRN Reason: Cervical Ripening Last Admin: 07/25/18 07:00 Dose: 25 mcg Nalbuphine HCl (Nubain) 10 mg IVPUSH Q1H PRN PRN Reason: Pain (severe 7-10) Sodium Chloride (Saline Flush) 10 ml FLUSH ASDIRECTED PRN PRN Reason: Keep Vein Open Sodium Chloride (Saline Flush) 2.5 ml FLUSH ASDIRECTED PRN PRN Reason: Keep Vein Open Sodium Chloride (Normal Saline) 10 ml IV ASDIRECTED PRN PRN Reason: IV Use Sterile Water (Sterile Water For Irrigation) 1,000 ml IRR ASDIRECTED PRN PRN Reason: delivery Terbutaline Sulfate (Brethine) 0.25 mg SUBCUT ASDIRECTED PRN PRN Reason: Tacysystole - Interaction Disposition, : [place] to Nursery Interaction: Other (see below) ( at nursery for labs) Feeding: Breastfed ; Nursed Well Support Person: - Recovery Exam Fundal Tone: Firm Fundal Level: At Umbilicus Fundal Placement: Midline Lochia Amount: Scant Lochia Color: Rubra/Red Perineum Description: Other (see below) Other Perinuem Description: 2nd degree laceration. Episiotomy/Laceration: Approximated Bladder Status: Voiding Urinary Elimination: Voided - Exam General: Alert HEENT: Pupils Equal Neck: Supple Lungs: Clear to Auscultation Cardiovascular: Regular Rate GI/Abdominal Exam: Normal Bowel Sounds Extremities: Normal Inspection Neurological: No New Focal Deficit - Problem List & Annotations (1) Status post vacuum-assisted vaginal delivery SNOMED Code(s): 325757970, [id number] Code(s): Z87.59 - PERSONAL HISTORY OF COMP OF PREG, CHLDBRTH AND THE PUERP Status: Acute Current Visit: Yes - Problem List Review Problem List Initiated/Reviewed/Updated: Yes - Assessment Assessment:: PPD2 stable - Plan Plan:: Discharge home today
[2018-07-28] MEDS: Ibuprofen 800 MG Tab PO PRN (13:12)
== END 2018-07-28 13:17 | disposition home or self-care (01) | DRG 806 ==
LOC: MW.OBCHECK 16:53 → MW.OB 16:54 → MW.OBCHECK 16:58 → MW.OB 16:59 → OBSVTOIN 07-26 00:03 → MW.OB 07-26 02:53
PROVIDERS: ADMIT Obstetrics & Gynecology; ATTEND Obstetrics & Gynecology
PROC: 10907ZC Drainage of Amniotic Fluid, Therapeutic from Products of Conception, Via Natural or Artificial Opening (ICD-10-PCS; principal; 2018-07-26)
PROC: 10D07Z6 Extraction of Products of Conception, Vacuum, Via Natural or Artificial Opening (ICD-10-PCS; principal; 2018-07-26)
PROC: 0KQM0ZZ Repair Perineum Muscle, Open Approach (ICD-10-PCS; principal; 2018-07-26)
PROC: 0U7C7ZZ Dilation of Cervix, Via Natural or Artificial Opening (ICD-10-PCS; principal; 2018-07-26)
PROC: 3E0P7VZ Introduction of Hormone into Female Reproductive, Via Natural or Artificial Opening (ICD-10-PCS; principal; 2018-07-26)
PROC: 3E033VJ Introduction of Other Hormone into Peripheral Vein, Percutaneous Approach (ICD-10-PCS; principal; 2018-07-26)
PROC: 3E0R3BZ Introduction of Anesthetic Agent into Spinal Canal, Percutaneous Approach (ICD-10-PCS; 2018-07-26)
PROC: 00HU33Z Insertion of Infusion Device into Spinal Canal, Percutaneous Approach (ICD-10-PCS; 2018-07-26)
DX: O75.89 Other specified complications of labor and delivery (principal); O75.2 Pyrexia during labor, not elsewhere classified; Z37.0 Single live birth; O70.1 Second degree perineal laceration during delivery; Z3A.39 39 weeks gestation of pregnancy; O76 Abnormality in fetal heart rate and rhythm complicating labor and delivery; O64.0XX0 Obstructed labor due to incomplete rotation of fetal head, not applicable or unspecified; O69.81X0 Labor and delivery complicated by cord around neck, without compression, not applicable or unspecified
CPT/HCPCS: 36415; 51702; 59025; 59200; 59409; 82803; 85014; 85018; 85027; 86850; 86900; 86901; A9270-GY; J0595; J2590; J3010; J3490; J7120